=== PATIENT | male | born 1945 | race Caucasian/White ===

== ENCOUNTER 2022-03-14 08:46 | Observation (INO) | payer MEDICARE ==
[2022-03-14] MEDS ORDERED: Vancomycin (BATCH) 1.5 GRAM/300 ML BAG ONE (10:01)
[2022-03-14] MEDS ORDERED: Lidocaine 1% (PF) 30 ML VIAL ONE (10:41)
[2022-03-14] MEDS ORDERED: Heparin 10,000 UNITS/ 10 ML VIAL ONE (10:41)
[2022-03-14] MEDS ORDERED: Gentamicin 80 MG/2 ML VIAL ONE (10:41)
[2022-03-14] MEDS ORDERED: CEFAZOLIN 1 GM VIAL ONE (10:41)
[2022-03-14] MEDS ORDERED: Ketamine 50 MG/ML (10ML VIAL) ONE (12:28)
[2022-03-14] MEDS ORDERED: Midazolam HCl 2 mg/2 ml Vial ONE (12:28)
[2022-03-14] MEDS ORDERED: Propofol 1,000 MG/100 ML VIAL IV ONE (12:29)
[2022-03-14] MEDS ORDERED: Propofol 500 MG/50 ML VIAL ONE (12:29)
[2022-03-14] MEDS ORDERED: Phenylephrine 10 MG/ML VIAL ONE (13:10)
[2022-03-14] MEDS ORDERED: traMADol HCl 50 MG TAB ONE (15:18)
[2022-03-14] MEDS ORDERED: Iopamidol 370 76% 50 ML VIAL FS ONE (15:46)
[2022-03-14] MEDS ORDERED: traMADol HCl 50 MG TAB PO PRN (16:27)
[2022-03-14] MEDS ORDERED: HYDROcodone/Acetaminophen 5/325 mg Tablet PO PRN ×2 (16:30)
[2022-03-14] MEDS ORDERED: Acetaminophen 325 MG TAB PO PRN (16:30)
[2022-03-14] MEDS ORDERED: Docusate 100 MG CAP PO PRN (16:34)
[2022-03-14] MEDS ORDERED: Loratadine 10 MG TAB PO PRN (16:36)
[2022-03-14] MEDS ORDERED: Polyethylene Glycol 3350 17 GM Packet PO PRN (16:37)
[2022-03-14 17:03] VITALS: BMI 18.0
[2022-03-14] MEDS: Carvedilol 3.125 MG TAB PO SCH (17:37)
[2022-03-14] MEDS: Fluticasone Propionate Nasal Spray 16 gm Bottle NASAL SCH (20:10)
[2022-03-14] MEDS ORDERED: Finasteride 5 MG TAB PO SCH (21:00)
[2022-03-14] MEDS ORDERED: Cyclobenzaprine 10 MG TAB PO SCH (21:00)
[2022-03-14] MEDS ORDERED: Atorvastatin Calcium 10 MG TAB PO SCH (21:00)
[2022-03-15] MEDS ORDERED: Levothyroxine Sodium 25 MCG TAB PO SCH (06:00)
[2022-03-15] MEDS ORDERED: Potassium Chloride 10 MEQ TAB PO SCH (08:00)
[2022-03-15] MEDS ORDERED: Tamsulosin HCl 0.4 MG CAP PO SCH (09:00)
[2022-03-15] MEDS ORDERED: Furosemide 20 MG TAB PO SCH (09:00)
[2022-03-15] MEDS ORDERED: Multivitamin W/ Minerals 1 TAB PO SCH (09:00)
[2022-03-15] MEDS ORDERED: Lisinopril 2.5 MG TAB PO SCH (09:00)
[2022-03-15] MEDS: Carvedilol 3.125 MG TAB PO SCH ×2 (09:34→17:41)
[2022-03-15] MEDS: Fluticasone Propionate Nasal Spray 16 gm Bottle NASAL SCH (09:35)
[2022-03-15 13:39] VITALS: BP 121/71; TEMP 98
== END 2022-03-15 18:30 | disposition home or self-care (01) ==
LOC: SDC 08:46 → 2SW 12:01
PROVIDERS: ADMIT Internal Medicine Cardiovascular Disease; ATTEND Internal Medicine Cardiovascular Disease
PROC: 02583ZZ Destruction of Conduction Mechanism, Percutaneous Approach (ICD-10-PCS; principal; 2022-03-14)
PROC: 02K83ZZ Map Conduction Mechanism, Percutaneous Approach (ICD-10-PCS; 2022-03-14)
PROC: 0JH607Z Insertion of Cardiac Resynchronization Pacemaker Pulse Generator into Chest Subcutaneous Tissue and Fascia, Open Approach (ICD-10-PCS; 2022-03-14)
PROC: 02HL3JZ Insertion of Pacemaker Lead into Left Ventricle, Percutaneous Approach (ICD-10-PCS; 2022-03-14)
PROC: 02HK3JZ Insertion of Pacemaker Lead into Right Ventricle, Percutaneous Approach (ICD-10-PCS; 2022-03-14)
PROC: 3E0102A Introduction of Anti-Infective Envelope into Subcutaneous Tissue, Open Approach (ICD-10-PCS; 2022-03-14)
DX: I11.0 Hypertensive heart disease with heart failure (principal); I50.22 Chronic systolic (congestive) heart failure; I44.2 Atrioventricular block, complete; I42.8 Other cardiomyopathies; I48.92 Unspecified atrial flutter; I48.0 Paroxysmal atrial fibrillation; N40.1 Benign prostatic hyperplasia with lower urinary tract symptoms; R33.8 Other retention of urine; G47.33 Obstructive sleep apnea (adult) (pediatric); E78.2 Mixed hyperlipidemia; E03.9 Hypothyroidism, unspecified; I25.10 Atherosclerotic heart disease of native coronary artery without angina pectoris; Z79.01 Long term (current) use of anticoagulants; Z79.890 Hormone replacement therapy; Z79.899 Other long term (current) drug therapy; Z20.822 Contact with and (suspected) exposure to COVID-19
CPT/HCPCS: 33208; 33225; 51703; 71045; 93005 ×2; 93613; 93650; C1760; C1763; C1769 ×3; C1894 ×2; C2630; G0378 ×2; J3370; U0003; U0005; 93010; J0690; J1580; J1644; J2001; J2250; J2370; J2704; Q9967

== ENCOUNTER 2024-01-20 08:08 | Inpatient (IN) | payer MEDICARE ==
[2024-01-20] MEDS ORDERED: cefTRIAXone (ROCEPHIN) 2 GM VIAL ONE (08:32)
[2024-01-20] MEDS ORDERED: Sodium Chloride 0.9% 100 ML ONE (08:33)
[2024-01-20] MEDS ORDERED: Ipratropium/Albuterol 3 ML NEB ONE (08:36)
[2024-01-20 08:41] LABS: Actual Bicarbonate (HCO3v) 30.7 mEq/L (22-28); Analyzer IN Cardio ER; Base Excess 6.6 mEq/L (-2.0 to +3.0); Calcium, Ionized (venous) 1.18 mmol/L (1.16-1.32); Chloride (VBG) 100 mmol/L (98-106); Hematocrit-VBG 52 % (42.0-52.0); Hemoglobin (Hb) 17.8 g/dL (12.6-17.4); Potassium (VBG) 4.41 mmol/L (3.70-5.30); Sodium 149 mmol/L (133-146); pH (venous) 7.485 (7.32-7.43)
[2024-01-20 08:51] LABS: Hematocrit 50.4 % (42.0-52.0); Hemoglobin 16.7 g/dL (14.0-18.0); Mean Corpuscular HGB CONC 33.1 g/dL (32.0-36.0); Mean Corpuscular Hemoglobin 29.8 pg (27.0-31.0); Mean Platelet Volume 9.9 fL (7.4-10.4); Platelet Count 243 10x3/uL (130-400); RBC Distribution Width 15.1 % (11.5-14.5)
[2024-01-20 09:11] LABS: ALT (SGPT) Less than 5 U/L (8-55); AST (SGOT) 14 U/L (5-34); Albumin 3.5 g/dL (3.4-4.8); Alkaline Phosphatase 80 U/L (40-110); Anion Gap 19 mmol/L (10-20); BUN (Urea Nitrogen) 70 mg/dL (8.4-25.7); Bilirubin, Total 0.7 mg/dL (0.2-1.2); Calc. Creatinine Clearance 0 mL/min (70-130); Calcium 10.2 mg/dL (7.8-10.44); Carbon Dioxide 29 mmol/L (23-31); Chloride 104 mmol/L (98-107); Estimated GFR 63; Globulin 3.8 g/dL (2.4-3.5); Glucose 147 mg/dL (83-110); Magnesium 3.3 mg/dL (1.6-2.6); Potassium 4.4 mmol/L (3.5-5.1); Protein, Total 7.3 g/dL (5.8-8.1); Sodium 148 mmol/L (136-145)
[2024-01-20 09:12] LABS: Digoxin 0.99 ng/mL (0.8-2.0)
[2024-01-20 09:15] LABS: Band 45 % (5-11); Lymphocytes 5 % (21-51); Monocytes 3 % (0-10); Neutrophil 48 % (42-75); Nucleated RBC (Manual Ct) 1 % (0); Platelet Adequacy Comment Platelets Normal; Polychromasia SLIGHT = 2-3 cells HPF (0-2)
[2024-01-20 09:17] LABS: Troponin I 0.019 ng/mL (< 0.028)
[2024-01-20] MEDS ORDERED: Vancomycin 1 GM/200 ML (FROZEN) BAG ONE (09:47)
[2024-01-20 09:57] LABS: Bilirubin Negative (Negative); Blood, Urine 3+ (Negative); CAUTI Indications for Culture Alt mental st,lethar; Clarity Turbid (Clear); Glucose, Urine (Dipstick) Greater than 1000 mg/dL (Negative); Ketone, Urine Negative (Negative); Leukocyte 75 Leu/uL (Negative); Nitrite Negative (Negative); Protein, Urine (Dipstick) 100 mg/dL (Neg-Trace); RBC/HPF Greater than 50 HPF (0-3); Specific Gravity, Urine 1.032 (1.002-1.036); Squamous Epithelial None Seen HPF (0-3); Urobilinogen Normal mg/dL (Less than 2); WBC/HPF Greater than 50 HPF (0-3); pH, Urine 5.5 (5.0-9.0)
[2024-01-20] MEDS ORDERED: Iopamidol-370 76% 500 ML MDV (1 ML CHARGE) ONE (10:26)
[2024-01-20 10:29] LABS: Bacteria/HPF 1+ HPF (None Seen)
[2024-01-20 10:30] LABS: Urine Culture Reflex Yes Yes
[2024-01-20] MEDS ORDERED: Senokot S 8.6-50 MG TAB PO PRN (10:56)
[2024-01-20] MEDS ORDERED: Guaifenesin DM 100-10/5 ML UDCUP PO PRN (10:56)
[2024-01-20] MEDS ORDERED: Acetaminophen 325 MG TAB PO PRN (10:56)
[2024-01-20] MEDS ORDERED: Sodium Chloride 0.9% 1,000 ML IV SCH (11:30)
[2024-01-20 11:41] LABS: Lactic Acid 1.81 mmol/L (0.5-2.2)
[2024-01-20 12:36] VITALS: BMI 17.7
[2024-01-20] MEDS: Sodium Chloride 0.45% 1,000 ML IV SCH (14:28)
[2024-01-20] MEDS ORDERED: VANCOMYCIN IVPB PRN (14:29)
[2024-01-20] MEDS ORDERED: Acetaminophen 650 MG Suppository ONE (14:33)
[2024-01-20] MEDS: Acetaminophen 650 MG Suppository PR PRN (14:45)
[2024-01-20] MEDS: Cefepime 2 GM in Sodium Chloride 0.9% 100 ML IVPB SCH (20:03)
[2024-01-20] MEDS ORDERED: Vancomycin (BATCH) 1.25 GM in Premix 1 BAG IVPB SCH (21:00)
[2024-01-20] MEDS: Vancomycin 1 GM in Premix 1 BAG IVPB SCH (21:16)
[2024-01-20 21:46] LABS: Strep pneumo Urine Ag NEGATIVE (NEGATIVE)
[2024-01-20 21:46] LABS: Legionella Urinary Ag Negative (Negative)
[2024-01-21 04:27] LABS: #Basophils Less than 0.03 10x3/uL (0.0-0.2); #Eosinophils Less than 0.03 10x3/uL (0.0-0.7); %Basophils 0.2 % (0.0-1.0); %Monocytes 3.8 % (0.0-10.0); %Neutrophils 90.6 % (42.0-75.0); Hematocrit 44.5 % (42.0-52.0); Hemoglobin 14.7 g/dL (14.0-18.0); Mean Corpuscular Hemoglobin 30.3 pg (27.0-31.0); Mean Corpuscular Volume 91.8 fL (78.0-98.0); Mean Platelet Volume 10.1 fL (7.4-10.4); Platelet Count 189 10x3/uL (130-400); RBC Distribution Width 15.2 % (11.5-14.5); Red Blood Cell (RBC) Count 4.85 mill/uL (4.70-6.10)
[2024-01-21 05:39] LABS: Vancomycin, Random 18.5 ug/mL (See Comment)
[2024-01-21 05:44] LABS: Anion Gap 16 mmol/L (10-20); BUN (Urea Nitrogen) 52 mg/dL (8.4-25.7); Calc. Creatinine Clearance 56 mL/min (70-130); Calcium 9.6 mg/dL (7.8-10.44); Carbon Dioxide 24 mmol/L (23-31); Chloride 110 mmol/L (98-107); Estimated GFR 91; Glucose 115 mg/dL (83-110); Potassium 3.7 mmol/L (3.5-5.1); Sodium 146 mmol/L (136-145)
[2024-01-21] MEDS: Enoxaparin 30 MG (0.3 mL) SYRINGE SC SCH (07:52)
[2024-01-21] MEDS ORDERED: Vancomycin 1 GM in Premix 1 BAG IVPB SCH (10:00)
[2024-01-21] MEDS: Vancomycin HCl 750 MG in Sodium Chloride 0.9% 250 ML 250 ML IVPB SCH (12:48)
[2024-01-21 13:47] VITALS: BMI 17.7
[2024-01-22] MEDS: Ondansetron PF 4 MG/2 ML Vial IVP PRN (07:16)
[2024-01-22 08:23] LABS: #Basophils Less than 0.03 10x3/uL (0.0-0.2); #Eosinophils Less than 0.03 10x3/uL (0.0-0.7); %Basophils 0.1 % (0.0-1.0); %Lymphocytes 4.4 % (21.0-51.0); %Monocytes 4.5 % (0.0-10.0); %Neutrophils 90.2 % (42.0-75.0); Hemoglobin 13.7 g/dL (14.0-18.0); Mean Corpuscular HGB CONC 32.6 g/dL (32.0-36.0); Mean Corpuscular Volume 91.9 fL (78.0-98.0); Mean Platelet Volume 9.5 fL (7.4-10.4); Platelet Count 191 10x3/uL (130-400); RBC Distribution Width 15.1 % (11.5-14.5); Red Blood Cell (RBC) Count 4.57 mill/uL (4.70-6.10)
[2024-01-22] MEDS: Sodium Chloride 0.45% 1,000 ML IV SCH (08:33)
[2024-01-22 08:37] LABS: Anion Gap 14 mmol/L (10-20); BUN (Urea Nitrogen) 36 mg/dL (8.4-25.7); Calc. Creatinine Clearance 73 mL/min (70-130); Calcium 8.9 mg/dL (7.8-10.44); Carbon Dioxide 23 mmol/L (23-31); Chloride 114 mmol/L (98-107); Estimated GFR 99; Glucose 94 mg/dL (83-110); Potassium 3.1 mmol/L (3.5-5.1); Sodium 148 mmol/L (136-145)
[2024-01-22] MEDS: Potassium Chloride 40 MEQ in Dextrose 5% in Water 1,000 ML IV SCH (11:29)
[2024-01-22] MEDS ORDERED: Loratadine 10 MG TAB PO PRN (15:09)
[2024-01-22] MEDS: Carbidopa/Levodopa 25-100 mg Tablet PO SCH ×2 (16:41→21:00)
[2024-01-22] MEDS: Apixaban 5 MG TAB PO SCH (20:54)
[2024-01-22] MEDS: Dronedarone HCl 400 MG TAB PO SCH (20:58)
[2024-01-22] MEDS: Carvedilol 3.125 MG TAB PO SCH (21:01)
[2024-01-22] MEDS: Atorvastatin Calcium 10 MG TAB PO SCH (21:03)
[2024-01-22] MEDS: Finasteride 5 MG TAB PO SCH (21:08)
[2024-01-22] MEDS: Saccharomyces boulardii 250 MG CAP PO SCH (21:08)
[2024-01-22] MEDS: Midodrine HCl 5 MG TAB PO SCH (21:08)
[2024-01-22] MEDS: Gabapentin 300 MG CAP PO SCH (21:08)
[2024-01-23 04:07] LABS: #Basophils 0.04 10x3/uL (0.0-0.2); %Basophils 0.3 % (0.0-1.0); %Eosinophils 0.2 % (0.0-10.0); %Lymphocytes 5.5 % (21.0-51.0); %Monocytes 6.1 % (0.0-10.0); %Neutrophils 86.1 % (42.0-75.0); Hematocrit 43.9 % (42.0-52.0); Hemoglobin 14.6 g/dL (14.0-18.0); Mean Corpuscular HGB CONC 33.3 g/dL (32.0-36.0); Mean Corpuscular Hemoglobin 29.7 pg (27.0-31.0); Mean Corpuscular Volume 89.2 fL (78.0-98.0); Mean Platelet Volume 9.9 fL (7.4-10.4); Platelet Count 208 10x3/uL (130-400); Red Blood Cell (RBC) Count 4.92 mill/uL (4.70-6.10)
[2024-01-23 04:33] LABS: Anion Gap 14 mmol/L (10-20); BUN (Urea Nitrogen) 27 mg/dL (8.4-25.7); Calc. Creatinine Clearance 69 mL/min (70-130); Calcium 9.1 mg/dL (7.8-10.44); Carbon Dioxide 24 mmol/L (23-31); Chloride 109 mmol/L (98-107); Estimated GFR 97; Glucose 141 mg/dL (83-110); Potassium 3.7 mmol/L (3.5-5.1); Sodium 143 mmol/L (136-145)
[2024-01-23] MEDS: Promethazine HCl 12.5 MG in Sodium Chloride 0.9% 50 ML IVPB SCH (05:24)
[2024-01-23] MEDS: Levothyroxine Sodium 50 MCG TAB PO SCH (09:30)
[2024-01-23] MEDS: Citalopram 10 MG TAB PO SCH (09:32)
[2024-01-23] MEDS: Cyanocobalamin (Vitamin B-12) 1,000 MCG TAB PO SCH (09:33)
[2024-01-23] MEDS: Multivit, Therapeutic 1 TAB PO SCH (09:33)
[2024-01-23] MEDS: Empagliflozin 10 MG TAB PO SCH (09:33)
[2024-01-23] MEDS: Senokot S 8.6-50 MG TAB PO PRN (09:50)
[2024-01-23] MEDS ORDERED: Iopamidol 370 76% 100 ML VIAL ONE (11:38)
[2024-01-23] MEDS: metroNIDAZOLE 500 MG in Premix 1 BAG IVPB SCH (14:01)
[2024-01-23] MEDS: Carbidopa/Levodopa 25-100 mg Tablet PO SCH (17:17)
[2024-01-24 04:20] LABS: #Basophils 0.04 10x3/uL (0.0-0.2); %Basophils 0.3 % (0.0-1.0); %Eosinophils 0.5 % (0.0-10.0); %Lymphocytes 6.3 % (21.0-51.0); %Monocytes 4.2 % (0.0-10.0); %Neutrophils 87.3 % (42.0-75.0); Hematocrit 42.6 % (42.0-52.0); Hemoglobin 13.9 g/dL (14.0-18.0); Mean Corpuscular HGB CONC 32.6 g/dL (32.0-36.0); Mean Corpuscular Hemoglobin 29.5 pg (27.0-31.0); Mean Corpuscular Volume 90.4 fL (78.0-98.0); Mean Platelet Volume 10.3 fL (7.4-10.4); Platelet Count 178 10x3/uL (130-400); RBC Distribution Width 14.8 % (11.5-14.5); Red Blood Cell (RBC) Count 4.71 mill/uL (4.70-6.10)
[2024-01-24 04:48] LABS: Anion Gap 10 mmol/L (10-20); BUN (Urea Nitrogen) 23 mg/dL (8.4-25.7); Calc. Creatinine Clearance 72 mL/min (70-130); Calcium 8.4 mg/dL (7.8-10.44); Carbon Dioxide 26 mmol/L (23-31); Chloride 110 mmol/L (98-107); Estimated GFR 98; Glucose 138 mg/dL (83-110); Potassium 3.9 mmol/L (3.5-5.1); Sodium 142 mmol/L (136-145)
[2024-01-24] MEDS: Potassium Chloride 40 MEQ in Dextrose 5% in Water 1,000 ML IV SCH (14:33)
[2024-01-24] MEDS ORDERED: QUEtiapine 25 MG TAB PO SCH (23:45)
[2024-01-25] MEDS ORDERED: Sterile Water 10 ML VIAL FS PRN (00:30)
[2024-01-25] MEDS: Ziprasidone 20 MG VIAL IM SCH (00:44)
[2024-01-25 04:57] LABS: #Basophils Less than 0.03 10x3/uL (0.0-0.2); %Basophils 0.2 % (0.0-1.0); %Eosinophils 1.4 % (0.0-10.0); %Lymphocytes 8.7 % (21.0-51.0); %Monocytes 4.9 % (0.0-10.0); %Neutrophils 83.5 % (42.0-75.0); Hematocrit 43.2 % (42.0-52.0); Mean Corpuscular HGB CONC 32.4 g/dL (32.0-36.0); Mean Corpuscular Hemoglobin 29.8 pg (27.0-31.0); Mean Corpuscular Volume 91.9 fL (78.0-98.0); Mean Platelet Volume 9.9 fL (7.4-10.4); Platelet Count 196 10x3/uL (130-400); RBC Distribution Width 14.6 % (11.5-14.5)
[2024-01-25 05:12] LABS: Anion Gap 13 mmol/L (10-20); BUN (Urea Nitrogen) 18 mg/dL (8.4-25.7); Calc. Creatinine Clearance 74 mL/min (70-130); Calcium 8.5 mg/dL (7.8-10.44); Carbon Dioxide 27 mmol/L (23-31); Chloride 107 mmol/L (98-107); Estimated GFR 99; Glucose 121 mg/dL (83-110); Potassium 3.6 mmol/L (3.5-5.1); Sodium 143 mmol/L (136-145)
[2024-01-25] MEDS ORDERED: Morphine 2 MG/ML VIAL SLOW IVP PRN (18:40)
[2024-01-26 05:17] LABS: #Basophils Less than 0.03 10x3/uL (0.0-0.2); %Basophils 0.1 % (0.0-1.0); %Eosinophils 1.2 % (0.0-10.0); %Lymphocytes 5.6 % (21.0-51.0); %Monocytes 4.3 % (0.0-10.0); %Neutrophils 87.5 % (42.0-75.0); Hemoglobin 13.9 g/dL (14.0-18.0); Mean Corpuscular HGB CONC 32.3 g/dL (32.0-36.0); Mean Corpuscular Hemoglobin 29.2 pg (27.0-31.0); Mean Corpuscular Volume 90.3 fL (78.0-98.0); Mean Platelet Volume 9.7 fL (7.4-10.4); Platelet Count 231 10x3/uL (130-400); RBC Distribution Width 14.6 % (11.5-14.5); Red Blood Cell (RBC) Count 4.76 mill/uL (4.70-6.10)
[2024-01-26 05:35] LABS: Anion Gap 11 mmol/L (10-20); BUN (Urea Nitrogen) 17 mg/dL (8.4-25.7); Calc. Creatinine Clearance 76 mL/min (70-130); Calcium 8.2 mg/dL (7.8-10.44); Carbon Dioxide 27 mmol/L (23-31); Chloride 102 mmol/L (98-107); Estimated GFR 100; Glucose 139 mg/dL (83-110); Potassium 4.2 mmol/L (3.5-5.1); Sodium 136 mmol/L (136-145)
[2024-01-26 12:31] LABS: INR-International Normal Ratio 1.5; Prothrombin Time 17.7 sec (12.0-14.7)
[2024-01-26 12:32] LABS: PTT 34.5 sec (22.9-36.1)
[2024-01-26] MEDS: Scopolamine 1 mg/72 hour Patch TD SCH (21:57)
[2024-01-27 04:44] LABS: #Basophils 0.03 10x3/uL (0.0-0.2); %Basophils 0.2 % (0.0-1.0); %Eosinophils 0.8 % (0.0-10.0); %Lymphocytes 6.4 % (21.0-51.0); %Monocytes 3.9 % (0.0-10.0); %Neutrophils 87.1 % (42.0-75.0); Hematocrit 40.9 % (42.0-52.0); Hemoglobin 13.3 g/dL (14.0-18.0); Mean Corpuscular HGB CONC 32.5 g/dL (32.0-36.0); Mean Corpuscular Hemoglobin 29.3 pg (27.0-31.0); Mean Corpuscular Volume 90.1 fL (78.0-98.0); Mean Platelet Volume 9.6 fL (7.4-10.4); Platelet Count 240 10x3/uL (130-400); RBC Distribution Width 14.6 % (11.5-14.5); Red Blood Cell (RBC) Count 4.54 mill/uL (4.70-6.10)
[2024-01-27 05:17] LABS: Anion Gap 13 mmol/L (10-20); BUN (Urea Nitrogen) 16 mg/dL (8.4-25.7); Calc. Creatinine Clearance 72 mL/min (70-130); Calcium 8.1 mg/dL (7.8-10.44); Carbon Dioxide 27 mmol/L (23-31); Chloride 102 mmol/L (98-107); Estimated GFR 98; Glucose 126 mg/dL (83-110); Potassium 4.5 mmol/L (3.5-5.1); Sodium 137 mmol/L (136-145)
[2024-01-27 08:50] VITALS: BP 102/66; TEMP 97.7
== END 2024-01-27 10:58 | disposition hospice, inpatient (51) | DRG 698 ==
LOC: ERS 08:08 → ERHOLD 11:00 → IMCU/EMU 16:34 → MSONC 01-21 16:28
PROVIDERS: ADMIT Hospitalist; ATTEND Hospitalist
PROC: 0D9670Z Drainage of Stomach with Drainage Device, Via Natural or Artificial Opening (ICD-10-PCS; principal; 2024-01-24)
DX: T83.511A Infection and inflammatory reaction due to indwelling urethral catheter, initial encounter (principal); A41.9 Sepsis, unspecified organism; J69.0 Pneumonitis due to inhalation of food and vomit; J96.01 Acute respiratory failure with hypoxia; K63.1 Perforation of intestine (nontraumatic); F03.93 Unspecified dementia, unspecified severity, with mood disturbance; E87.0 Hyperosmolality and hypernatremia; I48.20 Chronic atrial fibrillation, unspecified; R64 Cachexia; Z68.1 Body mass index [BMI] 19.9 or less, adult; K56.7 Ileus, unspecified; K63.0 Abscess of intestine; Z51.5 Encounter for palliative care; N39.0 Urinary tract infection, site not specified; E78.00 Pure hypercholesterolemia, unspecified; I11.0 Hypertensive heart disease with heart failure; I50.9 Heart failure, unspecified; Z66 Do not resuscitate; F32.A Depression, unspecified; I25.10 Atherosclerotic heart disease of native coronary artery without angina pectoris; Z95.810 Presence of automatic (implantable) cardiac defibrillator; Y84.6 Urinary catheterization as the cause of abnormal reaction of the patient, or of later complication, without mention of misadventure at the time of the procedure; Y73.2 Prosthetic and other implants, materials and accessory gastroenterology and urology devices associated with adverse incidents
CPT/HCPCS: 36415; 36416; 70450; 71045; 71275; 74018; 74177; 80048; 80053; 80162; 80202; 81001; 82805; 83605; 83735; 83880; 84145; 84484; 85025; 85610; 85730; 86141; 86850; 86900; 86901; 87040; 87081; 87086; 87449; 87899; 93005; 94640; 96361; 96365; 96367; 99292; J0692; J0696; J1650; J2405; J2550; J3370; J3370-JW; J3480; J3486; J7050; J7070; J7620; Q9967

== ENCOUNTER 2024-01-27 11:08 | Inpatient (IN) | payer OTHER ==
[2024-01-27 12:55] VITALS: BMI 18.3
[2024-01-27] MEDS ORDERED: diphenhydrAMINE 50 MG/ML VIAL IVP PRN (14:45)
[2024-01-27] MEDS ORDERED: Haloperidol Lactate 5 MG/ML VIAL SLOW IVP PRN (14:45)
[2024-01-27] MEDS ORDERED: Promethazine HCl 25 MG SUPP PR PRN (14:45)
[2024-01-27] MEDS ORDERED: Lorazepam 2 MG/ML VIAL SLOW IVP PRN (14:45)
[2024-01-27] MEDS ORDERED: Acetaminophen 650 MG Suppository PR PRN (14:45)
[2024-01-27] MEDS ORDERED: chlorproMAZINE HCl 25 MG in Sodium Chloride 0.9% 50 ML IVPB PRN (14:45)
[2024-01-28] MEDS: Morphine 2 MG/ML VIAL SLOW IVP PRN (01:06)
[2024-01-28 14:05] VITALS: BMI 18.3
[2024-01-28] MEDS: Ondansetron PF 4 MG/2 ML Vial IVP PRN (15:16)
[2024-01-28] MEDS: Scopolamine 1 mg/72 hour Patch TOP PRN (15:23)
[2024-01-30 11:57] VITALS: BP 91/62; TEMP 97.7
== END 2024-01-30 12:10 | DRG 951 ==
LOC: MSONC 11:08
PROVIDERS: ADMIT Family Medicine; ATTEND Hospitalist
DX: Z51.5 Encounter for palliative care (principal); K63.1 Perforation of intestine (nontraumatic); J96.01 Acute respiratory failure with hypoxia; J18.9 Pneumonia, unspecified organism; A41.9 Sepsis, unspecified organism; T83.511A Infection and inflammatory reaction due to indwelling urethral catheter, initial encounter; N39.0 Urinary tract infection, site not specified; F03.93 Unspecified dementia, unspecified severity, with mood disturbance; K56.609 Unspecified intestinal obstruction, unspecified as to partial versus complete obstruction; K63.0 Abscess of intestine; I48.91 Unspecified atrial fibrillation; I50.9 Heart failure, unspecified; E78.5 Hyperlipidemia, unspecified; I11.0 Hypertensive heart disease with heart failure; E03.9 Hypothyroidism, unspecified; Z95.810 Presence of automatic (implantable) cardiac defibrillator; Z98.890 Other specified postprocedural states; R53.81 Other malaise; Z66 Do not resuscitate; E87.5 Hyperkalemia
CPT/HCPCS: J2272; J2405